=== PATIENT | female | born 1940 | race African-American/Black ===

== ENCOUNTER 2024-11-10 13:03 | Emergency (ER) | payer OTHER ==
[~2024-11-10] VITALS: Ht 162.6 cm; Wt 64.0 kg
[2024-11-10 13:11] VITALS: O2SAT 98
[2024-11-10 14:36] LABS: BASOPHILS % 0.7 % (0.0-2.0); EOSINOPHILS % 1.1 % (0.0-5.0); HEMATOCRIT. 33.5 % (36.0-48.0); HEMOGLOBIN. 11.7 g/dL (12.0-16.0); MEAN CORPUSCULAR HEMOGLOBIN 33.7 pg (28.0-32.0); MEAN CORPUSCULAR VOLUME 96.1 fL (81.0-99.0); MEAN PLATELET VOLUME 7.2 fl (7.4-10.4); MONOCYTES % 11.6 % (2.0-8.0); NEUTROPHILS % 62.6 % (40.0-76.0); PLATELET 111 x1000/uL (130-400); RED BLOOD CELL COUNT 3.48 mill/uL (4.2-5.4); RED CELL DISTRIBUTION WIDTH 13.5 % (11.6-14.6); WHITE BLOOD COUNT 2.6 x1000/uL (4.5-11.0)
[2024-11-10 14:43] LABS: CHLORIDE 99 mEq/L (98-107); SODIUM 141 mEq/L (136-145)
[2024-11-10 14:44] LABS: CARBON DIOXIDE 33 mEq/L (21-32)
[2024-11-10 14:49] LABS: GLUCOSE 183 mg/dL (70-105); UREA NITROGEN BLOOD 11 mg/dL (9-23)
[2024-11-10 14:50] LABS: D-DIMER 0.47 mg/L FEU (<0.50); INR 1.5; PROTHROMBIN TIME 15.9 sec (9.6-11.0); TROPONIN I HIGH SENSITIVITY 6 ng/L (3.0-34)
[2024-11-10] MEDS: POTASSIUM CHLORIDE 20MEQ TABLET SR PO ONE (15:14)
[2024-11-10] MEDS: KCL 10MEQ/50ML PREMIX 50 ML IV ONE (15:15)
[2024-11-10 17:03] LABS: TROPONIN I HIGH SENSITIVITY 7 ng/L (3.0-34)
[2024-11-10 18:19] VITALS: BP 141/60; PULSE 65; RESP 13; TEMP 36.7; O2SAT 98
== END 2024-11-10 18:40 | disposition short-term general hospital (02) ==
LOC: ER 13:03
DX: R55 Syncope and collapse (principal); E87.6 Hypokalemia; I10 Essential (primary) hypertension; I21.3 ST elevation (STEMI) myocardial infarction of unspecified site; Z86.73 Personal history of transient ischemic attack (TIA), and cerebral infarction without residual deficits; Z79.899 Other long term (current) drug therapy
CPT/HCPCS: 99291; 96365; 70450; 80048; 83880; 85025; 85379; 85610; 85730; 86850; 86900; 86901; 84484; 36415; 71045; 93005; J3480